=== PATIENT | female | born 1985 | race Caucasian/White ===

== ENCOUNTER → 2018-02-03 | Outpatient (CLI) | payer BC ==
[2016-04-04 18:05] VITALS: BP 138/81
[~2018-02-03] MED LIST: FLUO10CA13 PO
--- NOTE | 2018-02-03 13:29 | KCIC ---
MR of the right ankle Indication: Right ankle pain, tenderness over posterior tibial tendon. There are background over foot August 2017. Medial pain. Swelling. Comparison: None are available Technique: Standard multiplanar sequences are obtained. FINDINGS: Artifact: No significant image degradation. Lateral: Peroneal tendons: Intact, no dislocation Lateral collateral ligaments: * Anterior talofibular ligament: Thickened with heterogeneous signal. * Calcaneofibular ligament: Thick and heterogeneous. * Posterior talofibular ligament: Thick Tibiofibular syndesmosis: Anterior inferior tibiofibular ligament is intact. Tibiofibular syndesmosis is intact. Medial: Posterior tibial tendon: Mild thickening and ill-definition adjacent to the navicular bone compatible with tendinosis. No high-grade tear or rupture. Flexor digitorum longus and hallucis tendons: Intact Medial ligaments: No evidence of acute deltoid ligament tear Anterior: Anterior tibial tendon: Intact Extensor hallucis longus tendon: Intact Extensor digitorum longus tendon: Intact Posterior: Achilles tendon: Intact Plantar aponeurosis: No acute plantar fasciitis Subtalar joints: Patent Tarsal sinus: Intact Talar Dome: Intact Bones: There is broadening of the anterior process of the calcaneus with a pseudoarticulation with the navicular was also demonstrates slight broadening and close approximation. 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 No acute fracture or aggressive bone destruction. No acute marrow edema. Small ununited os trigonum without edema. Fluid: Small tibiotalar joint effusion. Joints: No advanced DJD. Soft tissues: Mild edema within the medial soft tissues. Impression: 1. 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 2. Posterior tibial tendinosis at the navicular insertion without high-grade tear. 3. Sprain/scarring of lateral ankle ligaments. Electronically signed by: Alonzo Paul MD (02/03/2018 1:26 PM) [id number]
== END | disposition home or self-care (01) ==
LOC: KCIC MRI 11:19
PROVIDERS: ATTEND Orthopaedic Surgery
DX: M25.471 Effusion, right ankle (principal); R60.0 Localized edema
CPT/HCPCS: 73721